=== PATIENT | male | born 1980 | race American Indian/Alaskan Native ===

== ENCOUNTER 2019-03-14 10:42 | Outpatient (CLI) | payer OTHER ==
--- NOTE | 2019-03-14 15:16 | Magnetic Resonance Report ---
. MR UE nonjoint LT wo con INDICATION: LEFT HAND INJURY. TECHNIQUE: Multiplanar, multisequence MR images were obtained. COMPARISON: None available. FINDINGS: A vitamin E capsule is placed along the dorsal aspect of the ring finger PIP joint demarcating patien t's site of point tenderness. There is thickening of the ring finger PIP joint ulnar collateral ligam ent with surrounding soft tissue edema characteristic for sprain. No abnormal bone marrow signal inte nsity is seen within the left hand metacarpals or phalanges to suggest contusion or fracture. The fle xor and extensor tendons appear intact. IMPRESSION: 1. Acute sprain of the ring finger PIP UCL. Signer Name: Yobany Lund MD Signed: 03/14/2019 3:12 PM Workstation Name: [id number]
== END 2019-03-14 10:43 | disposition home or self-care (01) ==
LOC: MRI 10:42
PROVIDERS: ATTEND Orthopaedic Surgery
DX: S63.635A Sprain of interphalangeal joint of left ring finger, initial encounter (principal); Z91.018 Allergy to other foods; X58.XXXA Exposure to other specified factors, initial encounter; Y93.89 Activity, other specified; Y92.89 Other specified places as the place of occurrence of the external cause; Y99.8 Other external cause status